=== PATIENT | female | born 1970 | race Caucasian/White ===

== ENCOUNTER 2019-08-06 05:53 | Day surgery (SDC) | payer BC ==
[2019-07-23 12:15] LABS: BASOPHILS # (AUTO) 0.1 X10'3 (0-0.2); BASOPHILS % (AUTO) 0.8 % (0-1); EOSINOPHILS # (AUTO) 0.2 X10'3 (0-0.9); EOSINOPHILS % (AUTO) 2.1 % (0-6); LYMPHOCYTES # (AUTO) 1.6 X10'3 (1.1-4.8); LYMPHOCYTES % (AUTO) 18.9 % (21-51); MEAN CORPUSCULAR HEMOGLOBIN 27.9 PG (27.0-31.0); MEAN CORPUSCULAR HGB CONC 32.9 g/dL (33.0-36.5); MEAN PLATELET VOLUME 7.8 FL (7.4-10.4); MONOCYTES # (AUTO) 0.5 X10'3 (0-0.9); MONOCYTES % (AUTO) 6.2 % (2-12); NEUTROPHILS # (AUTO) 6.2 X10'3 (1.8-7.7); PRE OP HEMOGLOBIN 15.1 g/dL (12.0-16.0); PRE OP PLATELET COUNT 276 X10'3 (140-440); RED BLOOD COUNT 5.41 X10'6 (4.20-5.60)
[2019-07-23 12:33] LABS: ALBUMIN 3.9 G/DL (3.4-5.0); ALBUMIN/GLOBULIN RATIO 1.1 (1.1-1.5); ALKALINE PHOSPHATASE 92 IU/L (46-116); BLOOD UREA NITROGEN 20 MG/DL (7-18); BUN/CREATININE RATIO 22.2 (6.6-38.0); CALCIUM 9.3 MG/DL (8.5-10.1); CHLORIDE 105 MMOL/L (99-107); PRE OP ALT 48 U/L (30-65); PRE OP ANION GAP 7 (8-16); PRE OP AST 17 U/L (10-37); PRE OP BILIRUB, TOTAL 0.3 MG/DL (0.0-1.0); PRE OP GLUCOSE 101 MG/DL (70-104); PRE OP SODIUM 138 MMOL/L (135-145); TOTAL CARBON DIOXIDE 25.7 MMOL/L (24-32); TOTAL PROTEIN 7.3 G/DL (6.4-8.2); eGFR 67 ML/MIN
[~2019-08-06] VITALS: Ht 162.6 cm; Wt 103.6 kg
[2019-08-06] VITALS (8 sets, daily range): BP systolic 112–134; BP diastolic 73–80
[~2019-08-06 05:53] MED LIST: DIAZ5TAB5 PO; ESOM40CA54 PO; FIORINAL PO; HYDR-3972 PO; LAMO25TA5 PO; LITH150C8 PO; METF500T20 PO; PILO5TAB PO; famotidine 10mg tablet PO ONE; ringers solution, lacted 1,000 ML IV SCH
[2019-08-06] MEDS ORDERED: MESSAGE TO NURSING PO ONE (06:00)
[2019-08-06] MEDS ORDERED: LIDOcaine 1% (10mg/ml) 2ml vial ONE (06:10)
[2019-08-06] MEDS ORDERED: clindamycin 600mg/D5W 50ml 50 ML IV ONE (06:10)
[2019-08-06] MEDS ORDERED: LIDOcaine 0.5% (5mg/ml) 50ml vial ONE (07:15)
[2019-08-06] MEDS ORDERED: midazolam 2 mg/2 ml injection ONE ×2 (07:36→08:00)
[2019-08-06] MEDS ORDERED: fentaNYL/PF 50MCG/1 ML 2ML syringe ONE ×2 (07:36→08:27)
[2019-08-06] MEDS: BUPIVAcaine/PF 2.5mg/ml (0.25%) 10ml vial ONE ×2 (08:03→09:54)
[2019-08-06] MEDS ORDERED: proCHLORperazine 10 MG/2 ml inj IV PRN (08:25)
[2019-08-06] MEDS ORDERED: morphine 4 MG/ML inj SYRINge IV PRN ×2 (08:25)
[2019-08-06] MEDS ORDERED: ringers solution, lacted 1,000 ML IV SCH (08:25)
[2019-08-06] MEDS ORDERED: ondansetron/PF 4mg/2ml inj IV PRN (08:25)
[2019-08-06] MEDS ORDERED: meperidine/PF 25mg/ml syringe IV PRN ×3 (08:25)
[2019-08-06] MEDS ORDERED: glycopyrrolate 0.2mg/ml inj ONE (08:35)
[2019-08-06] MEDS ORDERED: diphenhydrAMINE 50 mg/ml inj ONE (08:35)
[2019-08-06] MEDS ORDERED: propofol inj 20 ML IV ONE (08:36)
[2019-08-06] MEDS ORDERED: LIDOcaine 1%/PF 5ML 10 MG/ML VIAL ONE (08:36)
--- NOTE | 2019-08-06 09:13 | NUR ---
Received from OR via , accompanied by Anesthesiologist DR YOUNGBLOOD and report given by Anesthesiolgist. AWAKENS TO VOCIE. VITALS STABLE. SPLINT WARM AND DRY. JAIME PAIN. FINGERS COOL AND PINK.
[2019-08-06] MEDS ORDERED: BUPIVAcaine/PF 2.5mg/ml (0.25%) 10ml vial ONE (09:16)
[2019-08-06] MEDS ORDERED: HYDROcodone/acetaminophen 10/325mg tab PO ONE (09:50)
--- NOTE | 2019-08-06 10:03 | NUR ---
AWAKE AND ORIENTED. VITALS STABLE. DRESSING DI. STATES PAIN IMPROVING. HOME WITH HER SPOUSE AT THIS TIME.
== END 2019-08-06 10:03 | disposition home or self-care (01) ==
LOC: PAS 05:53
PROVIDERS: ATTEND Orthopaedic Surgery Hand Surgery
DX: T84.122A Displacement of internal fixation device of bone of right forearm, initial encounter (principal); S66.811A Strain of other specified muscles, fascia and tendons at wrist and hand level, right hand, initial encounter; E11.9 Type 2 diabetes mellitus without complications; Z79.84 Long term (current) use of oral hypoglycemic drugs; Z79.899 Other long term (current) drug therapy; Z87.891 Personal history of nicotine dependence; Z88.0 Allergy status to penicillin; Z91.040 Latex allergy status; Z98.890 Other specified postprocedural states; Z90.710 Acquired absence of both cervix and uterus; Y83.8 Other surgical procedures as the cause of abnormal reaction of the patient, or of later complication, without mention of misadventure at the time of the procedure
CPT/HCPCS: 20680; 25310; 36415; 80053; 82948; 85025; 93005; J1200; J2001; J2250; J2704; J3010; J3490; A4215; A4615; J7120